=== PATIENT | male | born 1985 | race Caucasian/White ===

== ENCOUNTER 2019-04-06 18:01 | Emergency (ER) | payer SELFPAY ==
[~2019-04-06] VITALS: Ht 185.4 cm; Wt 83.9 kg
--- NOTE | 2019-04-06 18:06 | NUR ---
ED Nurse Note: Pt went to bathroom.
[2019-04-06 18:14] VITALS: BP 124/84
--- NOTE | 2019-04-06 18:22 | NUR ---
ED Nurse Note: Pt came in from home due to bump on upper lip, L sided noted today. Denies itchiness or redness. AAO x4, and ambulatory.
--- NOTE | 2019-04-06 18:54 | Emergency Room Report ---
History of Present Illness General Chief Complaint: Skin Rash/Abscess Source: Patient Present Illness HPI 33-year-old male presents to the emergency department for evaluation of a small localized ST nodule/pimple that he found today on his outer upper lip. Patient denies pain at this time he denies history of herpes. Patient denies trauma or fall. He denies recent URI or history of immune compromise. No aggravating or relieving factors at this time. Denies rashes, fevers, chills, wheezing / SOB or swelling of the lips or tongue. Allergies: Coded Allergies: No Known Allergies (Unverified , 04/06/19) Patient History Past Medical History: see triage record Past Surgical History: none Pertinent Family History: none Reviewed Nursing Documentation: PMH: Agreed; PSxH: Agreed Nursing Documentation-PMH Past Medical History: No Stated History Review of Systems All Other Systems: negative except mentioned in HPI Physical Exam Vital Signs Date Time Temp Pulse Resp B/P (MAP) Pulse Ox O2 Delivery O2 Flow Rate FiO2 04/06/19 18:14 97.9 61 20 124/84 (97) 95 Room Air Sp02 EP Interpretation: reviewed, normal General Appearance: no apparent distress, alert, GCS 15, non-toxic Head: normocephalic, atraumatic Eyes: bilateral eye normal inspection, bilateral eye PERRL ENT: hearing grossly normal, normal voice, other - 0.2cm ST nodule with vessicle appearance on the outter aspect of the upper lip at the vermilion border. no purulence, no blisters no other lesions. Neck: full range of motion Respiratory: lungs clear, normal breath sounds, no wheezing, speaking full sentences Cardiovascular #1: regular rate, rhythm, no edema Musculoskeletal: back normal, gait/station normal, normal range of motion, non- tender Neurologic: alert, oriented x3, responsive, motor strength/tone normal, sensory intact, speech normal, grossly normal Psychiatric: judgement/insight normal Skin: no rash Lymphatic: no adenopathy Medical Decision Making PA Attestation Dr. Soni Is my supervising Physician whom patient management has been discussed with. Diagnostic Impression: Primary Impression: Herpetic lesion ER Course 33-year-old male presents to the emergency department for evaluation of a small localized ST nodule/pimple that he found today on his outer upper lip. Patient denies pain at this time he denies history of herpes. Patient denies trauma or fall. He denies recent URI or history of immune compromise. No aggravating or relieving factors at this time. Denies rashes, fevers, chills, wheezing / SOB or swelling of the lips or tongue. Ddx considered but are not limited to: stomatitis, cold sore, herpes labialis, oral thrush, HFM, koplik spots, HSV, Vital signs: are WNL, pt. is afebrile H&PE are most consistent with herpes labialis, no evidence to suggest secondary cellulitis. ORDERS: none required at this time, the diagnosis is clinical ED INTERVENTIONS: None required at this time. DISCHARGE: At this time pt. is stable for d/c to home. Will provide printed patient care instructions, and any necessary prescriptions. Care plan and follow up instructions have been discussed with the patient prior to discharge. Last Vital Signs Date Time Temp Pulse Resp B/P (MAP) Pulse Ox O2 Delivery O2 Flow Rate FiO2 04/06/19 18:14 97.9 61 20 124/84 95 Room Air Disposition: HOME, SELF-CARE Condition: Stable Scripts Valacyclovir Hcl* (VALTREX*) 500 Mg Tablet 1000 MG ORAL TWICE A DAY for 7 Days, #28 TAB Prov: Yamileth Bell 04/06/19 Referrals: [facility]. [facility] Patient Instructions: Herpes Labialis Additional Instructions: Take medications as directed. Follow up with a Primary Care Provider in 3-5 days, even if your symptoms have resolved. --Please review list of primary care clinics, if you do not already have a primary care provider Return sooner to ED if new symptoms occur, or current symptoms become worse. - Please note that this Emergency Department Report was dictated using [employer] technology software, occasionally this can lead to erroneous entry secondary to interpretation by the dictation equipment. Yamileth Bell Apr 06, 2019 18:54
[2019-04-06] MEDS ORDERED: VALACYCLOVIR500 MG ORAL (18:55)
[2019-04-06 19:10] VITALS: BP 123/79
--- NOTE | 2019-04-06 19:10 | NUR ---
ER DISCHARGE NOTE: Patient is cleared to be discharged per ERMD, pt is aox4, on room air, with stable vital signs. pt was given dc and prescription instructions, pt was able to verbalize understanding, pt id band removed. pt is able to ambulate with steady gait. pt took all belongings.
== END 2019-04-06 19:10 | disposition home or self-care (01) ==
LOC: EMR 19:10
DX: B00.9 Herpesviral infection, unspecified (principal)
CPT/HCPCS: 99282